=== PATIENT | female | born 1960 | race Caucasian/White ===

== ENCOUNTER 2022-09-04 13:33 | Emergency (ER) | payer BC ==
[~2022-09-04] VITALS: Ht 167.6 cm; Wt 83.1 kg
[2022-09-04] MEDS ORDERED: LACTATED RINGER'S 1,000 ML IV ONE (14:00)
[2022-09-04] MEDS ORDERED: LACTATED RINGER'S 1,000 ML ONE (14:42)
[2022-09-04] MEDS ORDERED: SODIUM CHLORIDE 0.9% 100 ML ONE (14:42)
[2022-09-04] MEDS ORDERED: PIPERACILLIN/TAZOBACTAM 3.375 GM VIAL ONE (14:42)
[2022-09-04] MEDS ORDERED: POTASSIUM CHLORIDE 20 MEQ TAB CR PO STA (15:09)
[2022-09-04] MEDS ORDERED: IOPAMIDOL 370 MG/ML 100 ML INFUS..BTL INJ ONE (15:23)
[2022-09-04] MEDS ORDERED: POTASSIUM CHLORIDE 20 MEQ TAB CR PO ONE (15:26)
[2022-09-04 16:26] VITALS: O2SAT 97
[2022-09-04] MEDS ORDERED: AMOX TR-K CLV1 EAC2 PO (16:30)
== END 2022-09-04 17:01 | disposition home or self-care (01) ==
LOC: FSED 13:53
DX: K62.5 Hemorrhage of anus and rectum (principal); K57.32 Diverticulitis of large intestine without perforation or abscess without bleeding; E87.6 Hypokalemia; F41.9 Anxiety disorder, unspecified; R94.31 Abnormal electrocardiogram [ECG] [EKG]
CPT/HCPCS: 74177; 80048; 80076; 81003; 85025; 93005; 99284; J2543; J7050; J7121; Q9967

== ENCOUNTER 2022-09-18 06:26 | Emergency (ER) | payer BC ==
[~2022-09-18] VITALS: Ht 167.6 cm; Wt 81.0 kg
[~2022-09-18 06:26] MED LIST: AMOX TR-K CLV1 EAC2 PO
[2022-09-18 06:43] VITALS: O2SAT 97
== END 2022-09-18 07:35 | disposition home or self-care (01) ==
LOC: FSED 07:00
DX: F41.9 Anxiety disorder, unspecified (principal); F32.A Depression, unspecified; Z87.19 Personal history of other diseases of the digestive system
CPT/HCPCS: 99282